=== PATIENT | female | born 1975 | race Caucasian/White ===

== ENCOUNTER 2019-02-09 16:47 | Emergency (ER) | payer BC, OTHER ==
[~2019-02-09] VITALS: Ht 154.9 cm; Wt 79.5 kg
[2019-02-09 16:57] VITALS: BP 134/83
== END 2019-02-09 18:11 | disposition home or self-care (01) ==
LOC: ED 17:45
DX: J02.9 Acute pharyngitis, unspecified (principal)
CPT/HCPCS: 87081; 87880; 99283